=== PATIENT | male | born 1945 | race Caucasian/White ===

== ENCOUNTER 2018-07-03 08:53 | Outpatient (CLI) | payer OTHER, SELFPAY ==
[2018-07-03 09:20] LABS: Abs Immature Grans 0.01 k/cumm (0.0-0.09); Absolute Basophil Count 0.03 k/cumm (0.0-0.2); Absolute Eosinophil Count 0.28 k/cumm (0.0-0.7); Absolute Lymphocyte Count 1.11 k/cumm (1.2-3.4); Absolute Monocyte Count 0.46 k/cumm (0.11-0.7); Absolute Neutrophil Count 2.61 k/cumm (1.2-6.7); Basophils % 0.7; Eosinophils % 6.2; HGB 15.7 g/dL (13.5-17.5); Immature Grans % 0.2; Lymphocytes % 24.7; Mean Corp. HGB Concentration 34.1 g/dL (32.0-36.0); Mean Corpuscular Hemoglobin 32.6 pg (27.0-33.0); Mean Corpuscular Volume 95.4 fL (80-95); Mean Platelet Volume 9.6 fL (8.0-11.0); Monocytes % 10.2; Platelet Count 153 x1000/uL (130-400); RBC 4.82 m/cumm (4.50-6.00); RBC Distribution Width 12.1 % (11.8-14.1)
[2018-07-03 11:00] LABS: ALT 25 U/L (12-78); AST 24 U/L (15-37); Albumin 3.6 g/dL (3.4-5.0); Alkaline Phosphatase 72 U/L (46-116); Anion Gap 6.5 mmol/L (3-11); BUN 12 mg/dL (7-18); CO2 29.5 mmol/L (21.0-32.0); CREATININE 1.06 mg/dL (0.70-1.30); Calcium 8.6 mg/dL (8.5-10.1); Chloride 99 mmol/L (98-107); Cholesterol 194 mg/dL (50-200); Glucose 92 mg/dL (70-100); HDL Cholesterol 58 mg/dL (40-60); LDL CHOLESTEROL 128 mg/dL (<100); Potassium 4.7 mmol/L (3.5-5.1); Sodium 135 mmol/L (136-145); TSH (W/Ref FT4) 4.59 uIU/mL (0.358-3.74); Total Protein 6.9 g/dL (6.4-8.2); Triglyceride 81 mg/dL (30-150)
[2018-07-03 11:42] LABS: FREE T4 1.17 ng/dL (0.76-1.46)
== END 2018-07-03 09:13 ==
PROVIDERS: PCP Nurse Practitioner; Visit Provider Nurse Practitioner
DX: E03.9 Hypothyroidism, unspecified (principal)
CPT/HCPCS: 36415; 80053; 80061; 83721; 84439; 84443; 85025

== ENCOUNTER 2019-07-04 07:31 | Outpatient (CLI) | payer OTHER, SELFPAY ==
[2019-07-04 13:57] LABS: ALT 25 U/L (16-63); AST 18 U/L (15-37); Albumin 3.6 g/dL (3.4-5.0); Alkaline Phosphatase 80 U/L (46-116); Anion Gap 5.8 mmol/L (3-11); BUN 11 mg/dL (7-18); CO2 29.2 mmol/L (21.0-32.0); CREATININE 1.12 mg/dL (0.70-1.30); Calcium 8.8 mg/dL (8.5-10.1); Calculated LDL 106 mg/dL; Chloride 99 mmol/L (98-107); Cholesterol 180 mg/dL (50-200); Glucose 98 mg/dL (70-100); HDL Cholesterol 55 mg/dL (40-60); Potassium 5.1 mmol/L (3.5-5.1); Sodium 134 mmol/L (136-145); TSH (W/Ref FT4) 3.79 uIU/mL (0.36-3.74); Total Protein 6.9 g/dL (6.4-8.2); Triglyceride 98 mg/dL (30-150)
[2019-07-04 16:08] LABS: FREE T4 1.11 ng/dL (0.76-1.46)
== END 2019-07-04 07:51 ==
PROVIDERS: PCP Nurse Practitioner; Visit Provider Nurse Practitioner
DX: E03.9 Hypothyroidism, unspecified (principal); E78.5 Hyperlipidemia, unspecified; I10 Essential (primary) hypertension
CPT/HCPCS: 36415; 80053; 80061; 84439; 84443

== ENCOUNTER 2020-02-10 12:21 | Outpatient (CLI) | payer OTHER, SELFPAY ==
[2020-02-11 18:36] LABS: COVID-19 RT-PCR UVMMC Result Negative (Negative)
== END 2020-02-10 12:41 ==
PROVIDERS: PCP Nurse Practitioner; Visit Provider Nurse Practitioner
DX: R51 Headache (principal); R53.83 Other fatigue; R53.81 Other malaise
CPT/HCPCS: U0003

== ENCOUNTER 2020-07-08 05:27 | Outpatient (CLI) | payer OTHER, SELFPAY ==
[2020-07-08 09:36] LABS: TSH (W/Ref FT4) 6.11 uIU/mL (0.36-3.74)
[2020-07-08 10:02] LABS: FREE T4 1.22 ng/dL (0.76-1.46)
== END 2020-07-08 05:47 ==
PROVIDERS: Family Medicine; PCP Nurse Practitioner; Visit Provider Nurse Practitioner
DX: E03.9 Hypothyroidism, unspecified (principal)
CPT/HCPCS: 36415; 84439; 84443

== ENCOUNTER 2021-08-02 02:45 | Outpatient (CLI) | payer MEDICARE, SELFPAY ==
[2021-08-02 10:11] LABS: HGB 15.9 g/dL (13.5-17.5); MCH 32.4 pg (27.0-33.0); MCHC 33.8 % (32.0-36.0); MCV 95.9 fL (80-95); MPV 9.7 fL (8.0-11.0); Platelet Count 170 10^3/uL (130-400); RDW 12.1 % (11.8-14.1); RDW-SD 42.8 fL; WBC 5.04 10^3/uL (4.4-10.8)
[2021-08-02 11:10] LABS: ALT 28 U/L (16-63); AST 22 U/L (15-37); Albumin 3.8 g/dL (3.4-5.0); Alkaline Phosphatase 57 U/L (46-116); Anion Gap 6.1 mmol/L (3-11); BUN 14 mg/dL (7-18); CO2 31.9 mmol/L (21.0-32.0); CREATININE 1.1 mg/dL (0.70-1.30); Calculated LDL 141 mg/dL (<100); Chloride 99 mmol/L (98-107); Cholesterol 222 mg/dL (<200); Glucose 96 mg/dL (74-106); HDL Cholesterol 67 mg/dL (40-60); Potassium 4.8 mmol/L (3.5-5.1); Sodium 137 mmol/L (136-145); TSH (W/Ref FT4) 4.97 uIU/mL (0.36-3.74); Total Protein 7.1 g/dL (6.4-8.2); Triglyceride 73 mg/dL (<150)
[2021-08-02 11:27] LABS: FREE T4 0.95 ng/dL (0.76-1.46)
== END 2021-08-02 02:46 | disposition home or self-care (01) ==
LOC: LBO 02:46
PROVIDERS: PCP Nurse Practitioner; Visit Provider Nurse Practitioner
DX: E03.9 Hypothyroidism, unspecified (principal); E78.5 Hyperlipidemia, unspecified
CPT/HCPCS: 36415; 80053; 80061; 85027; 84439; 84443

== ENCOUNTER 2022-08-31 02:57 | Outpatient (CLI) | payer OTHER, SELFPAY ==
[2022-08-31 07:50] LABS: ALT 23 U/L (16-63); AST 24 U/L (15-37); Albumin 3.7 g/dL (3.4-5.0); Alkaline Phosphatase 58 U/L (46-116); Anion Gap 2.8 mmol/L (3-11); BUN 14 mg/dL (7-18); Bilirubin, Total 0.9 mg/dL (0.2-1.0); CO2 32.2 mmol/L (21.0-32.0); CREATININE 1.1 mg/dL (0.70-1.30); Calcium 8.9 mg/dL (8.5-10.1); Chloride 97 mmol/L (98-107); Estimated GFR 69.14 (mL/min/1.73m2); Glucose 99 mg/dL (74-106); Potassium 4.4 mmol/L (3.5-5.1); Sodium 132 mmol/L (136-145); TSH (W/Ref FT4) 6.03 uIU/mL (0.36-3.74); Total Protein 7.3 g/dL (6.4-8.2)
[2022-08-31 08:17] LABS: FREE T4 1.16 ng/dL (0.76-1.46)
== END 2022-08-31 02:58 | disposition home or self-care (01) ==
LOC: LBO 02:57
PROVIDERS: Absent Provider Nurse Practitioner; PCP Nurse Practitioner; Referring Provider Nurse Practitioner; Visit Provider Nurse Practitioner
DX: E03.9 Hypothyroidism, unspecified (principal); E78.5 Hyperlipidemia, unspecified
CPT/HCPCS: 36415; 80053; 84439; 84443

== ENCOUNTER → 2023-06-01 09:06 | Outpatient (BNVA) | payer MEDICARE, SELFPAY | PROVIDERS: PCP Nurse Practitioner; Referring Provider Nurse Practitioner; Visit Provider Physical Therapy Assistant | DX: Z12.11 Encounter for screening for malignant neoplasm of colon (principal) ==

== ENCOUNTER 2023-08-22 14:08 | Outpatient (REF) | payer MEDICARE, SELFPAY ==
[2023-08-22 16:29] LABS: TSH (W/Ref FT4) 5.51 uIU/mL (0.36-3.74); Vitamin B12 460 pg/mL (193-986)
[2023-08-22 17:08] LABS: FREE T4 0.97 ng/dL (0.76-1.46)
== END 2023-08-22 14:09 | disposition home or self-care (01) ==
LOC: LBN 14:08
PROVIDERS: PCP Nurse Practitioner; Visit Provider Nurse Practitioner
DX: E03.9 Hypothyroidism, unspecified (principal); R41.3 Other amnesia
CPT/HCPCS: 82607; 84439; 84443

== ENCOUNTER → 2023-09-06 12:50 | Outpatient (BNVA) | payer MEDICARE, SELFPAY | PROVIDERS: PCP Nurse Practitioner; Referring Provider Nurse Practitioner; Visit Provider Student in an Organized Health Care Education/Training Program | DX: M72.0 Palmar fascial fibromatosis [Dupuytren] (principal) | CPT/HCPCS: 99213 ==